=== PATIENT | female | born 1955 | race Caucasian/White ===

== ENCOUNTER 2017-09-20 10:42 | Emergency (ER) | payer MEDICAID, OTHER ==
[~2017-09-20] VITALS: Ht 154.9 cm; Wt 59.0 kg
[~2017-09-20 10:42] MED LIST: ASPI81CT89 PO; GABA300C PO; LISI10TA11 PO; METO25TA14 PO
[2017-09-20 10:49] VITALS: BP 131/91
[2017-09-20] MEDS ORDERED: ACETAMINOPHEN EXTRA STRENGTH 500 MG TAB PO ONE (11:15)
[2017-09-20 13:40] VITALS: BP 135/70
== END 2017-09-20 13:41 | disposition home or self-care (01) ==
LOC: MED 10:42
DX: S00.03XA Contusion of scalp, initial encounter (principal); I10 Essential (primary) hypertension; M81.0 Age-related osteoporosis without current pathological fracture; Z85.3 Personal history of malignant neoplasm of breast; W18.39XA Other fall on same level, initial encounter; Y93.89 Activity, other specified; Y92.091 Bathroom in other non-institutional residence as the place of occurrence of the external cause; Y99.8 Other external cause status
CPT/HCPCS: 70450; 72125; 93005; 99284

== ENCOUNTER 2019-04-10 21:20 | Emergency (ER) | payer MEDICAID, OTHER ==
[~2019-04-10] VITALS: Ht 154.9 cm; Wt 56.7 kg
[~2019-04-10 21:20] MED LIST changes: +ASPI-1718 PO; -ASPI81CT89 PO
--- NOTE | 2019-04-10 21:25 | NUR ---
PT WHEELCHAIR ASSISTED TO BED 8
[2019-04-10 21:31] VITALS: BP 158/87
[2019-04-10 21:35] VITALS: BP 158/87
--- NOTE | 2019-04-10 21:35 | NUR ---
63 Y/O FEMALE BIB DAUGHTER C/O INCREASING ABD PAIN FOR 1 WEEK W/ NAUSEA. PT STATES PAIN IS SHARP TO UMBILICAL AREA OF ABD. DENIES DIARRHEA OR VOMITING. A/OX4 FOLLOWS COMMANDS. BREATHING UNLABORED AND SYMMETRICAL. GI: ABDOMEN SOFT AND TENDER; BOWEL SOUNDS HEARD ON ALL FOUR QUADRANTS; PAIN IS NOTED UPON PALPATION NEAR THE UBILICAL REGION. PAIN IS A 10/10 ACUTE NON-RADIATING PAIN. PER PATIENT, "IT FEELS LIKE A HERNIA. I CAN'T LIFT OR BEND AND THE PAIN IS RIGHT BEHIND MY BELLY BUTTON". PATIENT AMBULATES WITH ASSISTANCE/ WALKER. ERMD MADE AWARE OF STATUS. PLACED ON MONITOR. SIDE RAILSX1. DAUGHTER AT BEDSIDE. PMH: BREAST CS, BRAIN CA; STAGE IV, HTN, ARTHRITIS, NEUROPATHY RX: LISINOPRIL; CARVEDILOL; GABAPENTIN; PERCOCET; ZOLOFT SURGICAL HX: APPENDECTOMY
--- NOTE | 2019-04-10 22:02 | NUR ---
LAB AT PT BEDSIDE
--- NOTE | 2019-04-10 22:20 | NUR ---
PT TAKEN TO CT
--- NOTE | 2019-04-10 22:29 | NUR ---
PT RETURNED FROM CT
[2019-04-10 22:30] LABS: BASOPHILS % (AUTO) 0.6 % (0.0-2.0); EOSINOPHILS # (AUTO) 0.1 K/uL (0-0.4); HEMATOCRIT 40.9 % (36-48); HEMOGLOBIN 13.9 g/dL (12.0-16.0); LYMPHOCYTES # (AUTO) 1.7 K/uL (2.5-16.5); MEAN CORPUSCULAR HEMOGLOBIN 32 pg (27-31); MEAN CORPUSCULAR HGB CONC 34 g/dL (33-37); MEAN CORPUSCULAR VOLUME 93.9 fL (80-94); MONOCYTES # (AUTO) 0.6 K/uL (0.8-1.0); MONOCYTES % (AUTO) 8.3 % (1.7-9.3); NEUTROPHILS # (AUTO) 4.4 K/uL (1.8-7.7); NEUTROPHILS % (AUTO) 65.1 % (42.2-75.2); PLATELET COUNT (AUTO) 184 K/uL (140-450); RED BLOOD CELL COUNT(AUTO) 4.35 MIL/uL (4.20-5.40); RED CELL DISTRIBUTION WIDTH 12.5 % (11.6-13.7); WHITE BLOOD COUNT (AUTO) 6.7 K/uL (4.8-10.8)
[2019-04-10 22:43] LABS: POTASSIUM 2.9 mmol/L (3.5-5.1)
[2019-04-10 22:44] LABS: ANION GAP 13.8 (8-16); CARBON DIOXIDE 25.1 mmol/L (21-32); CREATININE 0.7 mg/dL (0.6-1.3)
[2019-04-10 22:45] LABS: ALBUMIN 3.5 g/dL (3.4-5.0); TOTAL BILIRUBIN 0.4 mg/dL (0.0-1.0)
[2019-04-10] MEDS ORDERED: KCL 20 MEQ/WATER INJ PREMIX 100 ML IV ONE (22:50)
--- NOTE | 2019-04-10 23:10 | NUR ---
PT. REFUSED IV INSERTION. ER NOTIFIED.
[2019-04-10 23:45] LABS: APPEARANCE,URINE CLEAR (CLEAR); BILIRUBIN,URINE NEGATIVE (NEGATIVE); BLOOD, URINE NEGATIVE (NEGATIVE); COLOR,URINE YELLOW (YELLOW); LEUKOCYTE ESTERASE ,URINE NEGATIVE (NEGATIVE); NITRITE, URINE NEGATIVE (NEGATIVE); PH,URINE 6.5 (5.0-9.0); UGLUCOSE NEGATIVE (NEGATIVE)
--- NOTE | 2019-04-10 23:45 | NUR ---
Patient discharged with v/s stable. Written and verbal after care instructions given and explained. Patient verbalized understanding. Wheel Chair Assisted with . All questions addressed prior to discharge. Advised to follow up with PMD. PT. DISCHARGED BY DR. HOFF.
--- NOTE | 2019-04-10 23:45 | NUR ---
Note jacquelin in EDM - 04/10/19 at 2350 by MADHURI Patient discharged with v/s stable. Written and verbal after care instructions given and explained. Patient verbalized understanding. Wheel Chair Assisted with . All questions addressed prior to discharge. Advised to follow up with PMD.
== END 2019-04-10 23:45 | disposition home or self-care (01) ==
LOC: MED 21:20
DX: R10.30 Lower abdominal pain, unspecified (principal); I10 Essential (primary) hypertension; M19.90 Unspecified osteoarthritis, unspecified site; Z98.890 Other specified postprocedural states; Z79.899 Other long term (current) drug therapy; Z79.82 Long term (current) use of aspirin
CPT/HCPCS: 36415; 80053; 81003; 82150; 83690; 85025; 99284; J3480

== ENCOUNTER 2021-09-17 16:00 | Emergency (ER) | payer OTHER ==
[~2021-09-17] VITALS: Ht 154.9 cm; Wt 54.4 kg
[~2021-09-17 16:00] MED LIST changes: -ASPI-1718 PO; +ASPI-1822 PO; +LISI-486 PO; -LISI10TA11 PO
[2021-09-17 16:07] VITALS: BP 150/84
--- NOTE | 2021-09-17 16:47 | NUR ---
labs drawn by servando ruelas in [facility], returned to jost[facility]
[2021-09-17 16:59] LABS: BASOPHILS # (AUTO) 0.1 K/uL (0.00-0.22); BASOPHILS % (AUTO) 0.9 % (0.0-2.0); EOSINOPHILS # (AUTO) 0.1 K/uL (0-0.4); EOSINOPHILS % (AUTO) 0.8 % (0.0-4.0); HEMATOCRIT 44.8 % (36-48); HEMOGLOBIN 14.9 g/dL (12.0-16.0); LYMPHOCYTES # (AUTO) 1.9 K/uL (2.5-16.5); LYMPHOCYTES % (AUTO) 28.2 % (20.5-51.1); MEAN CORPUSCULAR HEMOGLOBIN 31 pg (27-31); MEAN CORPUSCULAR HGB CONC 33 g/dL (33-37); MONOCYTES # (AUTO) 0.4 K/uL (0.8-1.0); MONOCYTES % (AUTO) 5.7 % (1.7-9.3); NEUTROPHILS # (AUTO) 4.3 K/uL (1.8-7.7); NEUTROPHILS % (AUTO) 64.4 % (42.2-75.2); PLATELET COUNT (AUTO) 211 K/uL (140-450); RED BLOOD CELL COUNT(AUTO) 4.87 MIL/uL (4.20-5.40); RED CELL DISTRIBUTION WIDTH 13.1 % (11.6-13.7); WHITE BLOOD COUNT (AUTO) 6.6 K/uL (4.8-10.8)
--- NOTE | 2021-09-17 17:14 | NUR ---
PT AMBULATED TO ER BED 11 WITH WALKER
[2021-09-17 18:00] LABS: APPEARANCE,URINE CLEAR (CLEAR); BILIRUBIN,URINE NEGATIVE (NEGATIVE); BLOOD, URINE TRACE-I (NEGATIVE); COLOR,URINE YELLOW (YELLOW); LEUKOCYTE ESTERASE ,URINE 1+ (NEGATIVE); NITRITE, URINE NEGATIVE (NEGATIVE); UGLUCOSE NEGATIVE (NEGATIVE)
[2021-09-17 18:03] LABS: CARBON DIOXIDE 27.1 mmol/L (21-32); CREATININE 0.8 mg/dL (0.6-1.3); POTASSIUM 4.1 mmol/L (3.5-5.1); TOTAL BILIRUBIN 0.4 mg/dL (0.0-1.0)
[2021-09-17] MEDS ORDERED: NACL 0.9% 1,000 ML IV ONE (18:50)
[2021-09-17] MEDS ORDERED: KETOROLAC 30 MG/ML VIAL IVP ONE (18:50)
--- NOTE | 2021-09-17 19:19 | NUR ---
RECIEVED TRANSFER OF CARE REPORT FROM RONNY GONZALEZ.
[2021-09-17] MEDS ORDERED: cefTRIAXone 1,000 MG VIAL ONE (19:22)
[2021-09-17] MEDS ORDERED: IBUP-2213 PO (20:03)
[2021-09-17] MEDS ORDERED: ACET-10509 PO (20:03)
[2021-09-17] MEDS ORDERED: CEPH250C16 PO (20:03)
--- NOTE | 2021-09-17 20:46 | NUR ---
65 y/o female, c/o pain in lower back radiates to abd area that started yesterday. denies n/v/d. 01/18 pain. pmh: left masectomy, htn, neuropathy, arthritis, osteoporosis, breast ca nka
[2021-09-17] MEDS ORDERED: MORPHINE SULFATE 4 MG/ML SYR IVP ONE (21:20)
[2021-09-17] MEDS ORDERED: ACET-9535 PO (21:45)
[2021-09-17] MEDS ORDERED: LOSA100T1 PO (21:45)
--- NOTE | 2021-09-17 23:16 | NUR ---
PT GOWN AND LINENS CHANGED. REPLACED DIAPER. PT IS RESTING COMFORTABLY IN BED.
[2021-09-18 00:09] VITALS: BP 161/91
--- NOTE | 2021-09-18 00:09 | NUR ---
Patient discharged with v/s stable. Written and verbal after care instructions given and explained. Patient alert, oriented and verbalized understanding of instructions. Ambulatory with by caregiver. All questions addressed prior to discharge. ID band removed. Patient advised to follow up with PMD. Rx of TYLENOL,IBUPROFEN, AND CEPHALEXIN given. Patient educated on indication of medication including possible reaction and side effects. Opportunity to ask questions provided and answered.
== END 2021-09-18 00:09 | disposition home or self-care (01) ==
LOC: MED 16:00
DX: N12 Tubulo-interstitial nephritis, not specified as acute or chronic (principal); I10 Essential (primary) hypertension; Z85.3 Personal history of malignant neoplasm of breast; Z79.899 Other long term (current) drug therapy; Z79.82 Long term (current) use of aspirin
CPT/HCPCS: 36415; 74176; 80053; 81001; 83605; 83690; 85025; 87040; 87086; 96365; 96375; 99284; J0696; J1885; J2270